=== PATIENT | male | born 1995 ===

== ENCOUNTER 2018-10-07 13:16 | Outpatient (CLI) | payer BC ==
--- NOTE | 2018-10-07 14:07 | RAD ---
2 VIEWS CHEST: Date: 10/07/18 COMPARISON: None. HISTORY: Cough, bronchitis. FINDINGS: There is no pneumothorax, pleural fluid, focal consolidation, or alveolar edema. Heart and mediastina l contours unremarkable. IMPRESSION: No acute findings. POS: [facility]
== END 2018-10-07 13:17 | disposition home or self-care (01) ==
LOC: BICRAD 13:16
PROVIDERS: ATTEND Physician Assistant Medical
DX: J40 Bronchitis, not specified as acute or chronic (principal)
CPT/HCPCS: 71046